=== PATIENT | female | born 1955 | race Caucasian/White ===

== ENCOUNTER → 2017-07-30 | Outpatient (CLI) | payer BC ==
[2016-09-22 13:50] VITALS: BP 162/90
[~2017-07-30] MED LIST: AMLO5TAB2 PO; AMOX1TAB58 PO; ASPI-630 PO; CETI10TA16 PO; DEXL60CA2 PO; DULO30CA43 PO; DULO60CA44 PO; FAMO40TA4 PO; FLUT16SP NS; HYDR-2678 PO; LEVO100T5 PO; LEVO88TA4 PO; LOSA50TA6 PO; MONT10TA9 PO; POTA20TA82 PO; TRIA1CAP3 PO
--- NOTE | 2017-07-30 11:33 | KCIC ---
Clinical Indication: Postmenopausal screening Technique: Bone Densitometry was performed with dual photon absorption of the lumbar spine and proximal left femur. This is a baseline exam. Findings: Lumbar Spine: Bone density is 0.812 g/cm2 for L1-L4. T-Score is -2.1 and Z-score -0.7. Age-matched percentage is 92 %. Left Femur Total: Bone density is 0.847 g/cm2. T-Score is -0.8 and Z-score 0.2. Age-matched percentage is 103%. Impression: 1. Osteopenia in the lumbar spine. 2. Left hip bone marrow density approaching lower limit of normal. Electronically signed by: Yoel Chavez MD (07/30/2017 11:30 AM) [id number]
== END | disposition home or self-care (01) ==
LOC: KCIC DEXA 10:41
PROVIDERS: ATTEND Internal Medicine
DX: Z12.31 Encounter for screening mammogram for malignant neoplasm of breast (principal); M85.88 Other specified disorders of bone density and structure, other site; Z78.0 Asymptomatic menopausal state
CPT/HCPCS: 77063; 77080; G0202; 77067

== ENCOUNTER → 2017-08-31 | Outpatient (CLI) | payer BC ==
[2016-09-22 13:50] VITALS: BP 162/90
[~2017-08-31] MED LIST changes: +CETI10TA22 PO; +DIAZEPAM10 MG PO; +FLUO20TA11 PO; +HYDR12.58 PO; +OMEG-167 PO; +OXYC-328 PO; +TRAZ100T12 PO; +TURM538C PO
--- NOTE | 2017-08-31 15:24 | KCIC ---
EXAM: Chest, 2 views. HISTORY: Cough. Chest pain. COMPARISON: None. FINDINGS: Frontal and lateral views of the chest are obtained. There is no infiltrate, effusion or pneumothorax. The heart is normal in size. There is hyperinflation due to respiratory effort or mild emphysema. There is slight increased bilateral lower lobe opacity due to overlying osseous and pulmonary vascular shadows. IMPRESSION: No acute pulmonary finding. Electronically signed by: Elba Mckeon MD (08/31/2017 3:21 PM) [place] [id number]
== END | disposition home or self-care (01) ==
LOC: KCIC 14:55
PROVIDERS: ATTEND Internal Medicine
DX: J02.9 Acute pharyngitis, unspecified (principal); R05 Cough
CPT/HCPCS: 71020

== ENCOUNTER → 2017-10-12 | Outpatient (CLI) | payer BC ==
[2016-09-22 13:50] VITALS: BP 162/90
[~2017-10-12] MED LIST changes: -CETI10TA22 PO; -DIAZEPAM10 MG PO; -FLUO20TA11 PO; -HYDR12.58 PO; -OMEG-167 PO; -OXYC-328 PO; -TRAZ100T12 PO; -TURM538C PO
--- NOTE | 2017-10-12 12:11 | KCIC ---
EXAM: Chest CT without intravenous contrast. HISTORY: Pleuritic chest pain. TECHNIQUE: Computed tomographic images of the chest were obtained without contrast. Multiplanar reformatting was performed. *One or more of the following individualized dose reduction techniques were utilized for this examination: 1. Automated exposure control. 2. Adjustment of the mA and/or kV according to patient size. 3. Use of iterative reconstruction technique. COMPARISON: None. FINDINGS: The heart is normal in size. There is coronary artery atherosclerosis. No pathologically enlarged mediastinal or hilar lymph node is seen. There are calcified left hilar granulomas. There is no pneumothorax or pleural effusion. There is no infiltrate. The upper abdomen is unremarkable. There is no suspicious osseous lesion. There is minimal lingular and right middle lobe pleural-parenchymal scarring. There is a 3 mm nodule within the superior segment of the left lower lobe (series 6, image 20). There is a 2 mm nodule within the left lower lobe (series 6, image 27). There is a 3 mm nodule within the right lower lobe (series 6, image 45). There is a 2 mm nodule within the right lower lobe (series 6, image 28). There is a 3 mm nodule within the right lower lobe (series 6, image 41). There is a 2 mm nodule within the right upper lobe (series 6, image 17). IMPRESSION: 1. No acute pulmonary finding. 2. Tiny nodular opacities within both lungs, the largest of which measure 3 mm bilaterally. Follow-up can be performed according to Fleischner Society criteria. Fleischner Society recommendations (Radiology 2005; 237; 395-400): In a low risk patient: <4mm - No follow up required. >4-6mm- 12 month follow up, if unchanged, no further follow up. >6-8mm- 6-12 month follow up, then at 18-24 months if no change. >8mm- 3, 9, 24 month follow up or consideration of PET/CT. In a high risk patient: <4mm - 12 month follow up, if unchanged then no further follow up. >4-6mm- 6-12 month follow up, then at 18-24 months if no change. >6-8mm- 3-6 month follow up, then at 9-12 months and 24 months if no change >8mm- Same as for low risk patient. Electronically signed by: Elba Mckeon MD (10/12/2017 12:08 PM) [facility]
== END | disposition home or self-care (01) ==
LOC: KCIC 11:28
PROVIDERS: ATTEND Nurse Practitioner
DX: I25.10 Atherosclerotic heart disease of native coronary artery without angina pectoris (principal); R91.8 Other nonspecific abnormal finding of lung field
CPT/HCPCS: 71250

== ENCOUNTER → 2017-10-29 | Day surgery (SDC) | payer BC ==
[~2017-10-29] MED LIST changes: -AMLO5TAB2 PO; -AMOX1TAB58 PO; -ASPI-630 PO; -CETI10TA16 PO; -DEXL60CA2 PO; -DULO30CA43 PO; -DULO60CA44 PO; -FAMO40TA4 PO; -FLUT16SP NS; -HYDR-2678 PO; -LEVO100T5 PO; -LEVO88TA4 PO; +LIDOCAINE 2% PF Vial for OR 5 ML VIAL.; -LOSA50TA6 PO; -MONT10TA9 PO; -POTA20TA82 PO; +PROPOFOL 20 ML IV; -TRIA1CAP3 PO
[2017-10-29] MEDS: IV RINGERS,LACTATED 1000ML 1,000 ML IV (07:00)
== END | disposition home or self-care (01) ==
LOC: ENDOS 07:06
DX: K22.2 Esophageal obstruction (principal); K29.50 Unspecified chronic gastritis without bleeding; K21.0 Gastro-esophageal reflux disease with esophagitis; I10 Essential (primary) hypertension; J45.909 Unspecified asthma, uncomplicated; E03.9 Hypothyroidism, unspecified; F41.9 Anxiety disorder, unspecified; F32.9 Major depressive disorder, single episode, unspecified; Z72.0 Tobacco use; Z86.69 Personal history of other diseases of the nervous system and sense organs; Z90.710 Acquired absence of both cervix and uterus; Z86.39 Personal history of other endocrine, nutritional and metabolic disease
CPT/HCPCS: 43239; 88305; J2704

== ENCOUNTER → 2018-10-28 | Outpatient (CLI) | payer BC ==
[2017-10-29 09:33] VITALS: BP 156/79
[~2018-10-28] MED LIST changes: +AMLO5TAB7 PO; +AMOX1TAB58 PO; +ASPI-630 PO; +CETI10TA16 PO; +CETI10TA22 PO; +DEXL60CA2 PO; +DIAZEPAM10 MG PO; +DULO30CA43 PO; +DULO60CA44 PO; +FAMO40TA4 PO; +FLUO20TA11 PO; +FLUT16SP NS; +HYDR-2678 PO; +HYDR12.58 PO; +LEVO100T5 PO; +LEVO88TA4 PO; -LIDOCAINE 2% PF Vial for OR 5 ML VIAL.; +LOSA-73 PO; +MONT10TA9 PO; +OMEG-167 PO; +OXYC1TAB22 PO; +POTA20TA82 PO; -PROPOFOL 20 ML IV; +TRAZ-86 PO; +TRIA1CAP3 PO; +TURM538C PO
--- NOTE | 2018-10-28 10:52 | KCIC ---
PQRS Compliance statement: One or more of the following individualized dose reduction techniques were utilized for this examination: 1. Automated exposure control. 2. Adjustment of the mA and/or kV according to patient size. 3. Use of iterative reconstruction technique. Indication:Lung nodules. Follow-up. TECHNIQUE: CT chest without IV contrast with multiplanar reformats. COMPARISON: 10/12/2017 FINDINGS: Heart is normal in size. No pericardial or pleural effusion. Coronary artery calcifications. No enlarged axillary or mediastinal adenopathy. Evaluation of hilar lymphadenopathy is limited due to lack of IV contrast. Calcified left hilar lymph nodes are seen. Central airways are patent. Stable 3 mm nodular opacity/nodule in the right lower lobe (series 2 image 158). Stable 3 mm nodule in the right lower lobe (series 2 image 97). Stable 2 mm nodule in the anterior right lower lobe adjacent to the major fissure (series 2 image 137). Stable 2 mm nodule in the left upper lobe (series 2 image 98). Noncontrast appearance of the visualized sections through the liver, kidneys, pancreas within normal limits. No suspicious bony lesion. IMPRESSION: Multiple stable bilateral pulmonary nodules. Follow-up CT chest in one year recommended to document 2 year stability. Electronically signed by: Clyde Quinones DO (10/28/2018 10:48 AM) [facility]
== END | disposition home or self-care (01) ==
LOC: KCIC CT 08:56
PROVIDERS: ATTEND Internal Medicine Pulmonary Disease
DX: R91.8 Other nonspecific abnormal finding of lung field (principal); J45.909 Unspecified asthma, uncomplicated; I10 Essential (primary) hypertension; Z87.891 Personal history of nicotine dependence
CPT/HCPCS: 71250

== ENCOUNTER → 2019-11-21 | Outpatient (CLI) | payer BC ==
[2017-10-29 09:33] VITALS: BP 156/79
[~2019-11-21] MED LIST changes: +AMLO5TAB10 PO; -AMLO5TAB7 PO; -CETI10TA22 PO; +CETI10TA24 PO; -DULO30CA43 PO; +DULO30CA44 PO; -DULO60CA44 PO; +DULO60CA45 PO; +MONT10TA49 PO; -MONT10TA9 PO; +POTA20TA4 PO; -POTA20TA82 PO; +TRAZ-123 PO; -TRAZ-86 PO
--- NOTE | 2019-11-22 09:23 | KCIC ---
EXAM: Chest CT without intravenous contrast. HISTORY: Pulmonary nodule. Cigarette smoking. TECHNIQUE: Computed tomographic images of the chest were obtained without contrast. Multiplanar reformatting was performed. *One or more of the following individualized dose reduction techniques were utilized for this examination: 1. Automated exposure control. 2. Adjustment of the mA and/or kV according to patient size. 3. Use of iterative reconstruction technique. COMPARISON: 10/28/2018 and 10/12/2017. FINDINGS: There has been interval placement of a left cardiac pacemaker. There is slight stranding within the subcutaneous fat surrounding the pacemaker generator likely due to relative recent surgery. The heart is normal in size. There is calcified plaque involving the aorta and coronary arteries. There are prominent mediastinal and hilar lymph nodes. There is no pneumothorax or pleural effusion. There is no consolidation. There is minimal biapical and anterior right upper lobe pleural parenchymal scarring. There are few nonspecific groundglass opacities within both lungs which may be infectious or inflammatory in etiology. There are calcified granulomas. There are tiny noncalcified nodules within the bilateral lower lobes, the largest of which measuring 3 mm within the bilateral lower lobes. There is no acute finding involving the upper abdomen. There is no suspicious osseous lesion. IMPRESSION: 1. Stable tiny noncalcified pulmonary nodules, the largest of which measure 3 mm. The two-year course of stability favors benignity. 2. Mild apical and anterior upper lobe predominant pleural parenchymal scarring. There are few faint nonspecific groundglass opacities scattered within both lungs which may be postinfectious or postinflammatory in etiology. No consolidated infiltrate is seen. 3. Stable prominent mediastinal and hilar lymph nodes. These may be reactive or physiologic. 4. New cardiac pacemaker. There is slight stranding surrounding the cardiac pacemaker generator likely due to relative recent surgery. Electronically signed by: Elba Mckeon MD (11/22/2019 9:21 AM) [place] [id number]
== END | disposition home or self-care (01) ==
LOC: KCIC CT 10:02
PROVIDERS: ATTEND Internal Medicine Pulmonary Disease
DX: J84.10 Pulmonary fibrosis, unspecified (principal); R91.8 Other nonspecific abnormal finding of lung field; I70.0 Atherosclerosis of aorta; I25.10 Atherosclerotic heart disease of native coronary artery without angina pectoris; J98.4 Other disorders of lung; Z87.891 Personal history of nicotine dependence
CPT/HCPCS: 71250

== ENCOUNTER → 2021-02-19 | Outpatient (CLI) | payer BC ==
[2017-10-29 09:33] VITALS: BP 156/79
[~2021-02-19] MED LIST changes: +AMLO-186 PO; -AMLO5TAB10 PO; -CETI10TA24 PO; +CETI10TA74 PO; +IOHEXOL 240 MG/ML 50ML VIAL. PO ONE; +IOHEXOL 300 MG/ML 100ML VIAL. IV ONE
--- NOTE | 2021-02-20 12:27 | KCIC ---
CT of the abdomen and pelvis with contrast 02/20/2021 12:14 PM Indication: Reason: Abdominal pain, constipation, evaluate for obstruction / Spl. Instructions: 100m L Omni 300 / History: Appendectomy, total hysterectomy. Comparison study: CT abdomen and pelvis February 07, 2014 Technique: Multidetector CT imaging of the abd omen and pelvis was performed following the administration of IV contrast. Findings: The partially visualized lung bases demonstrate no acute abnormality. The liver, gallbladder, spleen, bilateral adrenal glands, and pancreas, are grossly unremarkable. Th ere is a small subcentimeter cyst in superior left kidney, stable. There is no bowel obstruction. No definitive acute inflammatory change involving the bowel is seen. Mildly prominent mesenteric adenopathy is seen. Reference lymph node can be seen on axial image 42. A ppearance is nonspecific. The appendix appears to be surgically absent. Bladder is grossly unremarkable. No free fluid or free air is seen in the abdomen or pelvis. No acute osseous changes are identified. Impression: 1.No evidence of acute intra-abdominal abnormality is identified. 2. Nonspecific mildly prominent mesenteric adenopathy. CT DOSING PQRS STATEMENT: One or more of the following individualized dose reduction techniques were utilized for this examinat ion: 1. Automated exposure control 2. Adjustment of the mA and/or kV according to patient size 3. Use of iterative reconstruction technique Electronically signed by: Godfrey Resendiz MD (02/20/2021 12:25 PM) [id number]
== END ==
LOC: KCIC CT 13:29
PROVIDERS: ATTEND Internal Medicine Gastroenterology
DX: R59.0 Localized enlarged lymph nodes (principal); Z90.49 Acquired absence of other specified parts of digestive tract
CPT/HCPCS: 74177; Q9966; Q9967

== ENCOUNTER → 2021-02-24 | Outpatient (CLI) | payer BC ==
[2017-10-29 09:33] VITALS: BP 156/79
[~2021-02-24] MED LIST changes: +AMLO-187 PO; +HYDR-2869 PO; -IOHEXOL 240 MG/ML 50ML VIAL. PO ONE; -IOHEXOL 300 MG/ML 100ML VIAL. IV ONE
== END ==
LOC: LAB 09:14
PROVIDERS: ATTEND Internal Medicine Gastroenterology
DX: Z01.812 Encounter for preprocedural laboratory examination (principal); Z13.9 Encounter for screening, unspecified; Z20.822 Contact with and (suspected) exposure to COVID-19
CPT/HCPCS: U0003

== ENCOUNTER → 2021-02-25 | Day surgery (SDC) | payer BC ==
[~2021-02-25] MED LIST changes: +IV RINGERS,LACTATED 1000ML 1,000 ML IV SCH; +LIDOCAINE 2% PF 5 ML VIAL. ONE; +PROPOFOL 10 MG/ML (20ML) VIAL. IV ONE; +ePHEDrine PF IN SALINE 50 MG/10 ML SYRINGE. IV ONE
[2021-02-25 14:27] VITALS: BP 118/61
== END | disposition home or self-care (01) ==
LOC: ENDOS 12:47
PROVIDERS: ATTEND Internal Medicine Gastroenterology
DX: R10.9 Unspecified abdominal pain (principal); R19.4 Change in bowel habit; R13.10 Dysphagia, unspecified; K64.0 First degree hemorrhoids; K57.30 Diverticulosis of large intestine without perforation or abscess without bleeding; Z86.010 Personal history of colon polyps; K21.9 Gastro-esophageal reflux disease without esophagitis; I10 Essential (primary) hypertension; J45.909 Unspecified asthma, uncomplicated; G47.30 Sleep apnea, unspecified; M19.90 Unspecified osteoarthritis, unspecified site; E03.9 Hypothyroidism, unspecified; F41.9 Anxiety disorder, unspecified; F32.9 Major depressive disorder, single episode, unspecified; F17.210 Nicotine dependence, cigarettes, uncomplicated; Z90.710 Acquired absence of both cervix and uterus; Z98.890 Other specified postprocedural states; Z79.82 Long term (current) use of aspirin; Z79.899 Other long term (current) drug therapy; Z88.1 Allergy status to other antibiotic agents; Z88.8 Allergy status to other drugs, medicaments and biological substances
CPT/HCPCS: 43450; 45378; J2704